=== PATIENT | male | born 1985 | race Caucasian/White ===

== ENCOUNTER 2019-06-11 15:45 | Emergency (ER) | payer MEDICAID ==
[~2019-06-11] VITALS: Wt 86.0 kg
[~2019-06-11 15:45] MED LIST: ACET-141 PO; IBUP-1561 PO
[2019-06-11 15:50] VITALS: BP 141/74; PULSE 80; RESP 20
== END 2019-06-11 16:59 | disposition home or self-care (01) ==
LOC: E/R 15:45
DX: M25.511 Pain in right shoulder (principal)
CPT/HCPCS: 73030; Z7502